=== PATIENT | female | born 1965 | race Caucasian/White ===

== ENCOUNTER 2023-01-09 18:16 | Emergency (ER) | payer OTHER, SELFPAY ==
[2023-01-09] VITALS (11 sets, daily range): BP systolic 112–156; BP diastolic 60–98; PULSE 77–88; RESP 15–24; TEMP 37.1; O2SAT 96–98; BMI 39.1
--- NOTE | 2023-01-09 18:57 | DI.RAD.S_ITS ---
PROCEDURE: XR CHEST 1V INDICATIONS: chest pain TECHNIQUE: One view of the chest was acquired. COMPARISON: None. FINDINGS: Surgical changes and devices: None. Lungs and pleura: Lungs are clear. No pleural effusions or pneumothorax. Mediastinum: Mediastinal contours appear normal. Heart size is normal. Bones and chest wall: No suspicious bony lesions. Overlying soft tissues appear unremarkable. IMPRESSION: No acute cardiopulmonary pathology. Dictated by: Trell Montes M.D. on 01/09/2023 at 20:07 Approved by: Trell Montes M.D. on 01/09/2023 at 20:08
--- NOTE | 2023-01-09 18:58 | DI.RAD.S_ITS ---
PROCEDURE: XR WRIST LT MIN 3V INDICATIONS: fall injury TECHNIQUE: 4 views of the wrist were acquired. COMPARISON: None. FINDINGS: Bones: No fractures or dislocations. Wrist joint osteoarthritic changes are seen more notably at scaphoid trapezial joint. No suspicious bony lesions. Scaphoid view: Scaphoid is intact. Soft tissues: No suspicious soft tissue calcifications. IMPRESSION: No acute left wrist fracture or dislocation. Left wrist osteoarthritis. Dictated by: Trell Montes M.D. on 01/09/2023 at 20:10 Approved by: Trell Montes M.D. on 01/09/2023 at 20:11
--- NOTE | 2023-01-09 18:58 | DI.RAD.S_ITS ---
PROCEDURE: XR KNEE LT 3V INDICATIONS: fall/injury TECHNIQUE: 3 views of the knee were acquired. COMPARISON: None. FINDINGS: Bones: Cortical irregularity involving medial portion of patella concerning for a nondisplaced fracture in this area suggest clinical correlation. No other fracture or dislocation is noted. No patellar subluxation. No suspicious bony lesions. Soft tissues: Moderate joint effusion. No suspicious soft tissue calcifications. IMPRESSION: Suggestion of nondisplaced fracture involving posterior and medial aspect of patella. Moderate joint effusion. Dictated by: Trell Montes M.D. on 01/09/2023 at 20:08 Approved by: Trell Montes M.D. on 01/09/2023 at 20:09
--- NOTE | 2023-01-09 18:58 | DI.RAD.S_ITS ---
PROCEDURE: XR WRIST RT MIN 3V INDICATIONS: fall injury TECHNIQUE: 4 views of the wrist were acquired. COMPARISON: None. FINDINGS: Bones: No fractures or dislocations. Mild osteoarthritic changes along radial aspect of right wrist are seen. No suspicious bony lesions. Scaphoid view: Scaphoid is intact. Soft tissues: No suspicious soft tissue calcifications. IMPRESSION: No acute right wrist fracture or dislocation. Mild right wrist joint osteoarthritis. Dictated by: Trell Montes M.D. on 01/09/2023 at 20:11 Approved by: Trell Montes M.D. on 01/09/2023 at 20:12
--- NOTE | 2023-01-09 18:59 | DI.RAD.S_ITS ---
PROCEDURE: XR ELBOW RT MIN 3V INDICATIONS: fall injury TECHNIQUE: 3 views of the elbow were acquired. COMPARISON: None. FINDINGS: Bones: Subtle cortical irregularity involving coronoid process of proximal ulna is noted. No other fracture or dislocation. No suspicious bony lesions. Soft tissues: Moderate elbow joint effusion. No suspicious soft tissue calcifications. IMPRESSION: Finding is suggestive of subtle avulsion injury involving anterior aspect of proximal ulnar specifically involving coronoid process. Moderate joint effusion. No other fracture or dislocation is seen. Dictated by: Trell Montes M.D. on 01/09/2023 at 20:27 Approved by: Trell Montes M.D. on 01/09/2023 at 20:29
--- NOTE | 2023-01-09 19:21 | DI.CT.S_ITS ---
PROCEDURE: CT HEAD/BRAIN WO CON INDICATIONS: syncope vs fall TECHNIQUE: Noncontrast 4.5 mm thick angled axial sections acquired from the foramen magnum to the vertex, with coronal and sagittal reformats. For radiation dose reduction, the following was used: automated exposure control, adjustment of mA and/or kV according to patient size. COMPARISON: None. FINDINGS: Image quality: Excellent. CSF spaces: Basal cisterns are patent. No extra-axial fluid collections. Ventricles are normal in size and shape. Brain: No midline shift. No intracranial masses or hemorrhage. [place]-white matter interface is normal. Skull and face: Calvarium and visualized facial bones are intact, without suspicious lesions. Incidental note is made of hyperostosis frontalis. This is not considered to be pathologic in a woman of this age. Sinuses: Visualized sinuses and mastoids are clear. IMPRESSION: No acute intracranial hemorrhage is seen. No acute intracranial process is seen. Dictated by: Tung Panda M.D. on 01/09/2023 at 18:46 Approved by: Tung Panda M.D. on 01/09/2023 at 18:47
[2023-01-09] MEDS: KETOROLAC 30 MG/ML VIAL 15 MG IV (20:22)
[2023-01-09 20:24] LABS: Add Manual Diff / Slide Review NO; Basophils Absolute Auto 100 /uL (0-100); Basophils Percent Auto 1.2 % (0-2); Eosinophils Absolute Auto 300 /uL (0-450); Eosinophils Percent Auto 2.3 % (2-4); Hematocrit 37.5 % (36-46); Hemoglobin 12.5 g/dL (12.0-16.0); Lymphocytes Absolute Auto 2600 /uL (1100-4500); Lymphocytes Percent Auto 21.4 % (25-40); Mean Corpuscular HGB Conc 33.4 % (30-36); Mean Corpuscular Hemoglobin 27.5 PG (26-34); Mean Corpuscular Volume 82.3 fL (80-100); Monocytes Absolute Auto 600 /uL (0-900); Monocytes Percent Auto 5.3 % (3-14); Neutrophils Absolute Auto 8400 /uL (1500-7000); Neutrophils Percent Auto 69.8 % (50-75); Platelet Count 348 X10^3/uL (150-400); Red Blood Cell Count 4.56 X10^6/uL (4.0-5.2); White Blood Cell Count 12.1 X10^3/uL (4.5-11.0)
[2023-01-09 20:36] LABS: INR 0.9 (0.9-1.3); Prothrombin Time 10.7 SECONDS (10.1-12.7)
[2023-01-09 20:39] LABS: PTT Partial Thromboplastin Tim 32 SECONDS (26-36)
[2023-01-09 20:42] LABS: Alanine Aminotransferase 29 IU/L (<35); Albumin 4.4 g/dL (3.5-5.0); Albumin Globulin Ratio 1.3 (1.0-2.8); Alkaline Phosphatase 59 U/L (38-126); Aspartate Aminotransferase 27 IU/L (14-36); BUN Creatinine Ratio 36.5 (6-22); Bilirubin Total 0.2 mg/dL (0.2-1.3); Blood Urea Nitrogen 23 mg/dL (7-17); Calcium 9.7 mg/dL (8.4-10.2); Carbon Dioxide 27 mmol/L (22-32); Chloride 103 mmol/L (98-107); Creatine Kinase 113 U/L (30-135); Estimated Glomerular Filt Rate > 60 mL/min (>60); Globulin 3.4 g/dL (1.7-4.1); Glucose 122 mg/dL (70-100); HEMOLYSIS 35 (0-50); Lipase 67 U/L (23-300); Magnesium 2.2 mg/dL (1.6-2.3); Potassium 4.2 mmol/L (3.4-5.1); Sodium 138 mmol/L (137-145); Total Protein 7.8 g/dL (6.3-8.2)
[2023-01-09 20:51] LABS: Troponin I < 0.012 ng/mL (0.01-0.034)
[2023-01-09] MEDS: BACITRACIN OINT 0.9 GM PCKT 1 APPLIC TOP (21:41)
[2023-01-09 22:54] LABS: COVID19 -Nasal RAPID Negative (Negative)
--- NOTE | 2023-01-09 23:06 | ED.SYNCOPE ---
HPI - Syncope General Chief Complaint: Syncope Stated Complaint: sent by urgent c/blacked out/fell/lt leg inj Time Seen by Provider: 01/09/23 19:20 Source: patient Mode of arrival: Wheelchair Limitations: no limitations History of Present Illness HPI narrative: This is a 57-year-old female with history of hypothyroidism, JEFF on CPAP, takes Celexa and Prilosec daily. 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 She was sitting a package down she is scanned it next thing she knows she woke up on the ground bleeding. She states there were 2 steps. She does not think that she tripped or fell, she did not recall having any sensation that she was going to pass out. She states she would a little bit headache afterwards. Denies any currently. No fevers no chills, no chest pain, no shortness of breath she would the 1 episode of vomiting. She states she does sometimes get nauseated after eating. But does not vomit regularly. No issues with bowel movements, no diarrhea constipation. No black or bloody stools. No dysuria urgency or frequency. No bowel or bladder incontinence. She is pain in her left knee as well as elbows particularly some bruising and discomfort in the soft tissue on the left. She states free arm is a little bit discomfort over the back of the forearm but not really at the elbow. She denies any swelling. She states only medications are Celexa, thyroid medication Prilosec. She uses a CPAP machine but does not use oxygen. He is had prior cholecystectomy thyroidectomy and 1 ovary removed remotely. Allergies to erythromycin and codeine. She states she tolerates [place] fine. Family history of CHF, no prior blood clots, strokes. Long distance travel. She is not on any estrogen. She does note last summer she had a day where she had several near syncopal episodes when it was really hot and back office at work and developed severe headache afterwards she was seen at [facility] had head CTs, EKGs and workup and was told everything was normal. She is otherwise not had syncopal episodes. Related Data Home Medications Medication Instructions Recorded Confirmed ALBUTEROL (PROVENTIL INHALER) 0.09 mg IH PRN ##0 03/15/11 IBUPROFEN (#MOTRIN) 600 mg PO PRN ##0 03/15/11 loratadine 10 mg tablet (Claritin) 10 mg PO PRN ##0 03/15/11 Fluticasone Propionate (FLONASE) 2 spray intranasal PRN ##0 11/16/11 Previous Rx's Medication Instructions Recorded ERGOCALCIFEROL (#VITAMIN D) 50,000 iu PO QWEEK ##8 10/09/11 levothyroxine 125 mcg tablet 125 mcg PO QAM ##90 03/22/12 (Synthroid) metformin 500 mg tablet 500 mg PO QID ##120 04/29/12 (Glucophage) paroxetine HCl 40 mg tablet (Paxil) 40 mg PO Q DAY ##30 12/25/12 hydrocodone 5 mg-acetaminophen 325 1 tab PO Q6H PRN pain #10 tabs 01/10/23 mg tablet Allergies Allergy/AdvReac Type Severity Reaction Status Date / Time bupropion [From Wellbutrin] Allergy Mild Nausea Verified 01/09/23 18:55 codeine Allergy Mild Rash Verified 01/09/23 18:55 erythromycin base Allergy Mild Nausea Verified 01/09/23 18:55 [From Erythrocin] Review of Systems Review of Systems ROS Unobtainable: All systems reviewed & are unremarkable except as noted in HPI and below Patient History Social History Smoking Status: Never smoker Smoking Status: Never smoker Substance Use Type: does not use Exam Narrative Exam Narrative: GEN: well nourished, well appearing female, alert and oriented x 3, patient appears to be in mild distress. HEENT: Atraumatic, pupils are equal round reactive to light, extraocular movements are intact, nares are clear, TMs are clear with no fluid, there is no conjunctival pallor. Throat is clear without any exudates, erythema, tonsillar enlargement or uvular deviation HEART: Regular rate and rhythm without murmur, clicks, rubs. No carotid bruits, pulses are equal in upper and lower extremities LUNGS:Lungs clear to auscultation, no wheezes, rales, crackles, chest moves symmetrically ABD:bowel sounds normal, soft, non-tender, no guarding, rebound, rigidity, no masses noted, no hepatosplenomegaly :No CVA tenderness. BACK: No cervical, thoracic or lumbar vertebral point tenderness. Patient has normal range of motion. Patient has full range of motion bilateral upper extremities 5/5 muscle strength. MSCL: Patient has tenderness over the left patella, abrasion. She has pain with movement prefers to hold it in extension but can flex and extend. She has pain at the elbows and some ecchymosis on the soft tissue on the medial side of her left elbow but no bony tenderness. She does not have any bony tenderness of the right elbow has good range of motion but notes some discomfort over the posterior forearm. No muscle atrophy, muscles strength 5/5 upper and lower extremities, full range of motion, normal gait NEURO:CN 2-12 intact, sensation normal, no dysarthria. No aphasia. SKIN: Abrasion left knee. Skin otherwise intact. No rash, skin changes otherwise noted. Initial Vital Signs Initial Vital Signs: Vital Signs Temperature 98.7 F 01/09/23 18:39 Pulse Rate 88 01/09/23 18:39 Respiratory Rate 16 01/09/23 18:39 Blood Pressure 146/79 H 01/09/23 18:39 Pulse Oximetry 98 01/09/23 18:39 Oxygen Delivery Method Room Air 01/09/23 18:39 Course Orders Ordered: ED Orders 01/09/23 20:10 Complete Blood Count AUTO DIFF Stat Comprehensive Metabolic Panel Stat Lipase Stat Magnesium Stat PTT Partial Thromboplastin Attila Stat Prothrombin Time INR Stat Troponin & CK Cardiac Panel Stat 01/09/23 22:30 COVID19 -Nasal RAPID Stat 01/09/23 23:27 XR elbow LT min 3V Stat Discontinued Medications Hydrocodone Bitart/Acetaminophen (Hydrocodone/Acet 5/325 Tablet) 2 tab PO NOW ONE Stop: 01/09/23 23:10 Last Admin: 01/09/23 23:31 Dose: 2 tab Documented By: Bacitracin (Bacitracin Oint 0.9 Gm Pckt) 1 applic TOP NOW ONE Stop: 01/09/23 21:31 Last Admin: 01/09/23 21:41 Dose: 1 applic Documented By: Diphtheria/Tetanus/Acell Pertussis (Tet,Diph,Pertuss(Acell),Vac/Pf 0.5 Ml Syringe) 0.5 ml IM .ONCE ONE Stop: 01/09/23 23:39 Last Admin: 01/10/23 00:41 Dose: 0.5 ml Documented By: Ketorolac Tromethamine (Ketorolac 30 Mg/Ml Vial) 15 mg IV NOW ONE Stop: 01/09/23 20:19 Last Admin: 01/09/23 20:22 Dose: 15 mg Documented By: Vital Signs Vital signs: Vital Signs - 8 hr 01/09/23 20:53 01/09/23 20:54 01/09/23 20:54 Pulse Rate 83 82 Respiratory Rate Blood Pressure 145/70 H Pulse Oximetry 97 98 Oxygen Delivery Method 01/09/23 21:00 01/09/23 21:00 01/09/23 21:30 Pulse Rate 81 79 Respiratory Rate 20 15 Blood Pressure 153/82 H Pulse Oximetry 97 96 Oxygen Delivery Method 01/09/23 21:30 01/09/23 22:00 01/09/23 22:00 Pulse Rate 78 Respiratory Rate 21 Blood Pressure 126/64 112/60 Pulse Oximetry 97 Oxygen Delivery Method 01/09/23 22:30 01/09/23 22:31 01/09/23 22:31 Pulse Rate 79 81 Respiratory Rate 21 Blood Pressure 143/66 H Pulse Oximetry 97 97 Oxygen Delivery Method 01/09/23 23:00 01/09/23 23:00 01/09/23 23:30 Pulse Rate 78 77 Respiratory Rate 24 23 Blood Pressure 151/98 H Pulse Oximetry 98 98 Oxygen Delivery Method 01/09/23 23:31 01/09/23 23:31 01/10/23 00:00 Pulse Rate 78 81 Respiratory Rate 26 H Blood Pressure 156/70 H Pulse Oximetry 97 Oxygen Delivery Method 01/10/23 00:01 01/10/23 00:01 01/10/23 00:30 Pulse Rate 81 78 Respiratory Rate 22 17 Blood Pressure 147/80 H Pulse Oximetry 96 Oxygen Delivery Method Room Air 01/10/23 00:31 01/10/23 00:31 01/10/23 01:00 Pulse Rate 79 78 Respiratory Rate 20 28 H Blood Pressure 150/68 H Pulse Oximetry 95 96 Oxygen Delivery Method Room Air 01/10/23 01:01 01/10/23 01:01 Pulse Rate 79 Respiratory Rate 21 Blood Pressure 121/60 Pulse Oximetry 96 Oxygen Delivery Method MDM - Syncope Lab Data 01/09/23 20:10 01/09/23 20:10 Labs: Lab Results 01/09/23 01/09/23 Range/Units 20:10 22:30 WBC 12.1 H (4.5-11.0) X10^3/uL RBC 4.56 (4.0-5.2) X10^6/uL Hgb 12.5 (12.0-16.0) g/dL Hct 37.5 (36-46) % MCV 82.3 (80-100) fL MCH 27.5 (26-34) PG MCHC 33.4 (30-36) % RDW 15.0 H (11.6-14.8) % Plt Count 348 (150-400) X10^3/uL Neut % (Auto) 69.8 (50-75) % Lymph % (Auto) 21.4 L (25-40) % Starr % (Auto) 5.3 (3-14) % Eos % (Auto) 2.3 (2-4) % Baso % (Auto) 1.2 (0-2) % Neut # (Auto) 8400 H (3458-8087) /uL Lymph # (Auto) 2600 (6807-5553) /uL Starr # (Auto) 600 (0-900) /uL Eos # (Auto) 300 (0-450) /uL Baso # (Auto) 100 (0-100) /uL PT 10.7 (10.1-12.7) SECONDS INR 0.9 (0.9-1.3) APTT 32 (26-36) SECONDS Sodium 138 (137-145) mmol/L Potassium 4.2 (3.4-5.1) mmol/L Chloride 103 (98-107) mmol/L Carbon Dioxide 27 (22-32) mmol/L BUN 23 H (7-17) mg/dL Creatinine 0.63 (0.52-1.04) mg/dL Estimated GFR > 60 (>60) mL/min BUN/Creatinine Ratio 36.5 H (6-22) Glucose 122 H (70-100) mg/dL Calcium 9.7 (8.4-10.2) mg/dL Magnesium 2.2 (1.6-2.3) mg/dL Total Bilirubin 0.2 (0.2-1.3) mg/dL AST 27 (14-36) IU/L ALT 29 (<35) IU/L Alkaline Phosphatase 59 (38-126) U/L Total Creatine Kinase 113 (30-135) U/L Troponin I < 0.012 (0.01-0.034) ng/mL Total Protein 7.8 (6.3-8.2) g/dL Albumin 4.4 (3.5-5.0) g/dL Globulin 3.4 (1.7-4.1) g/dL Albumin/Globulin Ratio 1.3 (1.0-2.8) Lipase 67 (23-300) U/L SARS-CoV-2 (PCR) Negative (Negative) Imaging Data CT scan - head: Radiologist's Impression: [address] [address] [address] Scan Report Signed Patient: Jeni Stephens MR#: [id number] : 1965 Acct:[id number] Age/Sex: 57 / F Date of Service: 01/09/23 Loc: ED Accession Number: [id number] Procedure: CT head/brain wo con Ordering Provider: Juliana Kuo D.O. PROCEDURE: CT HEAD/BRAIN WO CON INDICATIONS: syncope vs fall TECHNIQUE: Noncontrast 4.5 mm thick angled axial sections acquired from the foramen magnum to the vertex, with coronal and sagittal reformats. For radiation dose reduction, the following was used: automated exposure control, adjustment of mA and/or kV according to patient size. COMPARISON: None. FINDINGS: Image quality: Excellent. CSF spaces: Basal cisterns are patent. No extra-axial fluid collections. Ventricles are normal in size and shape. Brain: No midline shift. No intracranial masses or hemorrhage. [place]-white matter interface is normal. Skull and face: Calvarium and visualized facial bones are intact, without suspicious lesions. Incidental note is made of hyperostosis frontalis. This is not considered to be pathologic in a woman of this age. Sinuses: Visualized sinuses and mastoids are clear. IMPRESSION: No acute intracranial hemorrhage is seen. No acute intracranial process is seen. Dictated by: Tung Panda M.D. on 01/09/2023 at 18:46 Approved by: Tung Panda M.D. on 01/09/2023 at 18:47 Chest x-ray: Radiologist's Impression: Close Head CT (Signed) Tung Panda - 01/09/23 Elbow X-Ray (Signed) Trell Montes - 01/09/23 Wrist X-Ray (Signed) Simon,Trell - 01/09/23 Wrist X-Ray (Signed) Trell Montes - 01/09/23 Knee X-Ray (Signed) Simon,Trell - 01/09/23 Chest X-Ray (Signed) Trell Montes - 01/09/23 Launch?Image [address] [address] XRay Report Signed Patient: Jeni Stephens MR#: [id number] : 1965 Acct:[id number] Age/Sex: 57 / F Date of Service: 01/09/23 Loc: ED Accession Number: [id number] Procedure: XR chest 1V Ordering Provider: Juliana Kuo D.O. PROCEDURE: XR CHEST 1V INDICATIONS: chest pain TECHNIQUE: One view of the chest was acquired. COMPARISON: None. FINDINGS: Surgical changes and devices: None. Lungs and pleura: Lungs are clear. No pleural effusions or pneumothorax. Mediastinum: Mediastinal contours appear normal. Heart size is normal. Bones and chest wall: No suspicious bony lesions. Overlying soft tissues appear unremarkable. IMPRESSION: No acute cardiopulmonary pathology. Dictated by: Trell Montes M.D. on 01/09/2023 at 20:07 Approved by: Trell Montes M.D. on 01/09/2023 at 20:08 Extremity x-ray #1: Radiologist's Impression: [address] [address] XRay Report Signed Patient: Jeni Stephens MR#: [id number] : 1965 Acct:[id number] Age/Sex: 57 / F Date of Service: 01/09/23 Loc: ED Accession Number: [id number] Procedure: XR elbow RT min 3V Ordering Provider: Juliana Kuo D.O. PROCEDURE: XR ELBOW RT MIN 3V INDICATIONS: fall injury TECHNIQUE: 3 views of the elbow were acquired. COMPARISON: None. FINDINGS: Bones: Subtle cortical irregularity involving coronoid process of proximal ulna is noted. No other fracture or dislocation. No suspicious bony lesions. Soft tissues: Moderate elbow joint effusion. No suspicious soft tissue calcifications. IMPRESSION: Finding is suggestive of subtle avulsion injury involving anterior aspect of proximal ulnar specifically involving coronoid process. Moderate joint effusion. No other fracture or dislocation is seen. Dictated by: Trell Montes M.D. on 01/09/2023 at 20:27 Approved by: Trell Montes M.D. on 01/09/2023 at 20:29 Extremity x-ray #2: Radiologist's Impression: [address] [address] XRay Report Signed Patient: Jeni Stephens MR#: [id number] : 1965 Acct:[id number] Age/Sex: 57 / F Date of Service: 01/09/23 Loc: ED Accession Number: [id number] Procedure: XR knee LT 3V Ordering Provider: Juliana Kuo D.O. PROCEDURE: XR KNEE LT 3V INDICATIONS: fall/injury TECHNIQUE: 3 views of the knee were acquired. COMPARISON: None. FINDINGS: Bones: Cortical irregularity involving medial portion of patella concerning for a nondisplaced fracture in this area suggest clinical correlation. No other fracture or dislocation is noted. No patellar subluxation. No suspicious bony lesions. Soft tissues: Moderate joint effusion. No suspicious soft tissue calcifications. IMPRESSION: Suggestion of nondisplaced fracture involving posterior and medial aspect of patella. Moderate joint effusion. Dictated by: Trell Montes M.D. on 01/09/2023 at 20:08 Approved by: Trell Montes M.D. on 01/09/2023 at 20:09 Extremity x-ray #3: Radiologist's Impression: [address] [address] XRay Report Signed Patient: Jeni Stephens MR#: [id number] : 1965 Acct:[id number] Age/Sex: 57 / F Date of Service: 01/09/23 Loc: ED Accession Number: [id number] Procedure: XR wrist RT min 3V Ordering Provider: Juliana Kuo D.O. PROCEDURE: XR WRIST RT MIN 3V INDICATIONS: fall injury TECHNIQUE: 4 views of the wrist were acquired. COMPARISON: None. FINDINGS: Bones: No fractures or dislocations. Mild osteoarthritic changes along radial aspect of right wrist are seen. No suspicious bony lesions. Scaphoid view: Scaphoid is intact. Soft tissues: No suspicious soft tissue calcifications. IMPRESSION: No acute right wrist fracture or dislocation. Mild right wrist joint osteoarthritis. Dictated by: Trell Montes M.D. on 01/09/2023 at 20:11 Approved by: Trell Montes M.D. on 01/09/2023 at 20:12 ext #4: Radiologist's Impression: [address] [address] XRay Report Signed Patient: Jeni Stephens MR#: [id number] : 1965 Acct:[id number] Age/Sex: 57 / F Date of Service: 01/09/23 Loc: ED Accession Number: [id number] Procedure: XR wrist LT min 3V Ordering Provider: Juliana Kuo D.O. PROCEDURE: XR WRIST LT MIN 3V INDICATIONS: fall injury TECHNIQUE: 4 views of the wrist were acquired. COMPARISON: None. FINDINGS: Bones: No fractures or dislocations. Wrist joint osteoarthritic changes are seen more notably at scaphoid trapezial joint. No suspicious bony lesions. Scaphoid view: Scaphoid is intact. Soft tissues: No suspicious soft tissue calcifications. IMPRESSION: No acute left wrist fracture or dislocation. Left wrist osteoarthritis. Dictated by: Trell Montes M.D. on 01/09/2023 at 20:10 Approved by: Trell Montes M.D. on 01/09/2023 at 20:11 elbow Left xray: Radiologist's Impression: Jeni Stephens??57??F??1965 ? Allergy/Adv: bupropion, codeine, erythromycin base (More??) Close Elbow X-Ray (Signed) Trell Montes - 01/09/[address] (Signed) Tung Panda - 01/09/23 Elbow X-Ray (Signed) Trell Montes - 01/09/23 Wrist X-Ray (Signed) Trell Montes - 01/09/23 Wrist X-Ray (Signed) Trell Montes - 01/09/23 Knee X-Ray (Signed) Trell Montes - 01/09/23 Chest X-Ray (Signed) Trell Motnes 01/09/23 Launch?Image [address] [address] XRay Report Signed Patient: Jeni Stephens MR#: [id number] : 1965 Acct:[id number] Age/Sex: 57 / F Date of Service: 01/09/23 Loc: ED Accession Number: [id number] Procedure: XR elbow LT min 3V Ordering Provider: Juliana Kuo D.O. PROCEDURE: XR ELBOW LT MIN 3V INDICATIONS: left elbow swelling/bruising medial side, syncope TECHNIQUE: 3 views of the elbow were acquired. COMPARISON: None. FINDINGS: Bones: No fractures or dislocations. No suspicious bony lesions. Soft tissues: No significant elbow joint effusion. No suspicious soft tissue calcifications. IMPRESSION: No acute elbow fracture or dislocation. No significant joint effusion. Dictated by: Trell Montes M.D. on 01/09/2023 at 23:43 Approved by: Trell Montes M.D. on 01/09/2023 at 23:43 ECG Data Attestation: I personally reviewed and interpreted this ECG as follows: Interpretation: Sinus rhythm rate 87 MT 184 QRS of [address]TC [address] No acute [address] elevation or depression noted. Patient does not have any priors for comparison. MDM Narrative Medical decision making narrative: 57-year-old female had likely syncopal episode today. Patient had 1 episode of vomiting just prior. She states she did have some near syncopal episodes on 1 day when it was very hot at work last summer. 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 She has a history of anxiety, hypothyroidism and JEFF on CPAP. CBC has a hemoglobin of 12.5 normal platelets and white count of 12 coags are negative, electrolytes, are appropriate BUN 23 glucose is 122 LFTs are negative with a negative troponin, COVID negative. Head CT was negative chest x-ray shows no acute change. Patient has suspected patellar fracture on left knee x-ray. Also has questionable stable avulsion injury of the right elbow although patient is not tender in that area. She does have some bruising on the left soft tissue she is mildly tender on that side so x-ray was obtained. Patient has not had any arrhythmias or acute changes here. She is otherwise well-appearing. She did have a dose of Toradol, dose of oral pain medication. She states tetanus is not up-to-date so this was included as well. Plan for follow up with primary care recommend Holter monitor, echo and further workup. Patient is felt safe for discharge home at this time. Spoke with Orthopedic surgery, Dr. Bansal, plan for knee immobilizer. Patient can weightbear as tolerated. Discussed possible avulsion injury patient is not tender over that region she has full range of motion will hold off on any sling or restrictive treatment at this time and have patient follow-up with orthopedic surgery. Reviewed all these findings with patient need for follow-up with primary care or Cardiology for further workup for possible syncope versus other causes of her episode today. Patient has continued to be stable in the department. Reviewed all of her findings, need for follow-up patient expresses understanding. L and I paperwork was filled out. Discharge Plan Departure Patient Disposition: Home Clinical Impression: Syncope, Patellar fracture, Avulsion injury of right elbow region, Traumatic ecchymosis of left elbow Activity Restrictions/Additional Instructions: Follow-up with your physician to be further evaluated I would recommend a Holter monitor or ZIO patch and further workup for syncope versus other causes of your episode today. Follow-up with orthopedic surgery regarding your patellar fracture and questionable avulsion injury to the right elbow. Call tomorrow morning to set up a follow-up appointment. You may weightbear as tolerated. Splint Care: Keep splint clean and dry. Elevated affected body part to decrease swelling. OK to use ice pack on the affected body part. Use for 15-20 minutes each time, for 5-6x per day. If you develop worsening pain, numbness, tingling, discoloration of the affected body part, loosen the splint by loosening the BRANDI wrap, and either see your doctor for an urgent re-assessment, or return to the Emergency Department. Return to the Emergency Department for any new or worsening symptoms, confusion, recurrent syncopal episodes, chest pain, shortness of breath, persistent vomiting, new swelling in her extremities or other new or concerning changes. Prescriptions: New hydrocodone-acetaminophen 5-325 mg tablet 1 tab PO Q6H PRN (Reason: pain) Qty: 10 0RF No Action loratadine [Claritin] 10 MG tablet 10 mg PO PRN Qty: 0 IBUPROFEN (#MOTRIN) 600 mg PO PRN Qty: 0 ALBUTEROL (PROVENTIL INHALER) 0.09 mg IH PRN Qty: 0 ERGOCALCIFEROL (#VITAMIN D) 50,000 iu PO QWEEK Qty: 8 0RF Fluticasone Propionate (FLONASE) 2 spray Intranasal PRN Qty: 0 levothyroxine [Synthroid] 125 MCG tablet 125 mcg PO QAM Qty: 90 3RF metformin [Glucophage] 500 MG tablet 500 mg PO QID Qty: 120 2RF paroxetine HCl [Paxil] 40 MG tablet 40 mg PO Q DAY Qty: 30 0RF Referrals: Denton Bansal MD [Physician] - Stand Alone Forms: Patient Portal/API, Work Release Note
--- NOTE | 2023-01-09 23:27 | DI.RAD.S_ITS ---
PROCEDURE: XR ELBOW LT MIN 3V INDICATIONS: left elbow swelling/bruising medial side, syncope TECHNIQUE: 3 views of the elbow were acquired. COMPARISON: None. FINDINGS: Bones: No fractures or dislocations. No suspicious bony lesions. Soft tissues: No significant elbow joint effusion. No suspicious soft tissue calcifications. IMPRESSION: No acute elbow fracture or dislocation. No significant joint effusion. Dictated by: Trell Montes M.D. on 01/09/2023 at 23:43 Approved by: Trell Montes M.D. on 01/09/2023 at 23:43
[2023-01-09] MEDS: HYDROCODONE/ACET 5/325 TABLET 2 TAB PO (23:31)
[2023-01-10] VITALS: PULSE 81; RESP 26
[2023-01-10 00:01] VITALS: BP 147/80; PULSE 81; RESP 22
[2023-01-10 00:30] VITALS: PULSE 78; RESP 17; O2SAT 96
[2023-01-10 00:31] VITALS: BP 150/68; PULSE 79; RESP 20; O2SAT 95
[2023-01-10] MEDS: TET,DIPH,PERTUSS(ACELL),VAC/PF 0.5 ML SYRINGE IM (00:41)
[2023-01-10 01:00] VITALS: PULSE 78; RESP 28; O2SAT 96
[2023-01-10 01:01] VITALS: BP 121/60; PULSE 79; RESP 21; O2SAT 96
== END 2023-01-10 01:38 | disposition home or self-care (01) ==
PROVIDERS: Emergency Provider Emergency Medicine
DX: R55 Syncope and collapse (principal); S82.002A Unspecified fracture of left patella, initial encounter for closed fracture; S59.901A Unspecified injury of right elbow, initial encounter; S50.02XA Contusion of left elbow, initial encounter; R07.9 Chest pain, unspecified; Z20.822 Contact with and (suspected) exposure to COVID-19; Z23 Encounter for immunization
CPT/HCPCS: 36415; 70450; 71045; 73080; 73110; 73562; 80053; 82550; 83690; 83735; 84484; 85025; 85610; 85730; 87635; 90471; 93005; 96374; 99284; 99285; C9803; 90715; J1885